=== PATIENT | male | born 1990 | race African-American/Black ===

== ENCOUNTER 2017-02-11 13:55 | Emergency (ER) | payer OTHER ==
[2017-02-11 14:00] VITALS: BP 111/68
[2017-02-11] MEDS ORDERED: Lidocaine 1% 50 ML MDV INJECT ONE (15:03)
--- NOTE | 2017-02-11 15:13 | EDM.PDOC ---
ED HPI GENERAL MEDICAL PROBLEM - General Chief Complaint: Laceration Stated Complaint: R HAND INJURY Time Seen by Provider: 02/11/17 14:53 Source of Information: Reports: Patient History Limitations: Reports: No Limitations - History of Present Illness INITIAL COMMENTS - FREE TEXT/NARRATIVE: 26-year-old male presents for evaluation treatment of a laceration to the right hand middle finger. Injury occurred prior to arrival in the ER. 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 He states that he placed the cut the distal portion of his right finger pad off. He reports significant bleeding. No numbness or tingling. Last tetanus was 7 years ago. Onset: Today Right Middle Hand Pain Score (Numeric/FACES): 1 - Related Data Allergies Allergy/AdvReac Type Severity Reaction Status Date / Time No Known Allergies Allergy Verified 02/11/17 14:00 Home Meds: Home Meds . [No Known Home Meds] 02/11/17 [History] Past Medical History Cardiovascular History: Reports: Heart Murmur Social & Family History - Family History Family Medical History: Noncontributory - Tobacco Use Smoking Status *Q: Current Some Day Smoker Years of Tobacco use: 5 Packs/Tins Daily: 0.1 - Recreational Drug Use Recreational Drug Use: No ED ROS GENERAL - Review of Systems Review Of Systems: See Below Skin: Reports: Wound (right middle finger ventral distal tip avulsion injury) Neurological: Reports: Numbness. Denies: Tingling ED EXAM, SKIN/RASH Exam: See Below Exam Limited By: No Limitations General Appearance: Alert, WD/WN, No Apparent Distress Cardiovascular: Normal Peripheral Pulses, Regular Rate, Rhythm Peripheral Pulses: 2+: Radial (L), Radial (R) Extremities: Normal Capillary Refill Neurological: Alert, Oriented Psychiatric: Normal Affect, Normal Mood Skin: Warm, Dry, Wound/Incision (2cm x 1 cm skin avulsion to the right hand 3rd distal vental finger ) Location, Skin: Upper Extremity, Right Course - Vital Signs Last Recorded V/S: Last Vital Signs Temp 36.7 C 02/11/17 13:58 Pulse 63 02/11/17 13:58 Resp 16 02/11/17 13:58 BP 111/68 02/11/17 13:58 Pulse Ox 98 02/11/17 13:58 - Orders/Labs/Meds Meds: Medications Discontinued Medications Generic Name Dose Route Start Last Admin Trade Name Shahid PRN Reason Stop Dose Admin Lidocaine HCl 50 ml 02/11/17 15:03 02/11/17 16:30 Xylocaine 1% INJECT 02/11/17 15:04 50 ml ONETIME ONE Administration - Re-Assessments/Exams Free Text/Narrative Re-Assessment/Exam: 02/11/17 16:48 Finger was soaked with kerraclens and saline. I then anesthetized the area with 1cc of 1% lidocaine without epi. Area was cauterized with 6 silver nitrate sticks. Small areas continued to ooze after cautry but resolved with pressure. Dressing including bacitracin and a tube gauze applied by nursing staff. Patient tolerated well. No complications. Tetanus is up to date. Discharge instructions as documented. Departure - Departure Time of Disposition: 16:41 Disposition: Home, Self-Care 01 Condition: Good Clinical Impression: Avulsion of skin of finger - Discharge Information Instructions: Avulsion Fracture of the Hand Referrals: PCP,None [Primary Care Provider] - Forms: ED Department Discharge Additional Instructions: Monitor the wound for signs of infection such as increased swelling, pus or erythema. Present to the clinic or the ER should these develop. Expect it take 2 weeks for the wound to heel. OTC antibacterial ointment to the wound twice a day x 3 days. Keep wound clean, dry and covered. Please return to ER if your symptoms change or worsen.
== END 2017-02-11 16:50 | disposition home or self-care (01) ==
LOC: JD.ED 13:55
DX: S61.302A Unspecified open wound of right middle finger with damage to nail, initial encounter (principal); F17.210 Nicotine dependence, cigarettes, uncomplicated; W26.9XXA Contact with unspecified sharp object(s), initial encounter
CPT/HCPCS: 11740; 12001; 12002; 99282-25; 99283-25

== ENCOUNTER 2017-02-12 12:00 | Emergency (ER) | payer OTHER ==
[2017-02-12 12:10] VITALS: BP 117/77
--- NOTE | 2017-02-12 12:51 | EDM.PDOC ---
ED HPI GENERAL MEDICAL PROBLEM - General Chief Complaint: Wound Recheck Stated Complaint: FINGER LAC STILL BLEEDING Time Seen by Provider: 02/12/17 12:36 Source of Information: Reports: Patient History Limitations: Reports: No Limitations - History of Present Illness INITIAL COMMENTS - FREE TEXT/NARRATIVE: Patient is a 26-year-old male returns back to the ED with concerns of bleeding persisting from his right middle finger. Patient cut his finger in a meat stringer yesterday and was seen at the ED. Site was cauterized with silver nitrate with dressing placed. Patient states since placement of the dressing is soaked through 2. 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 Patient has no additional complaints at this time. Right Middle Hand Pain Score (Numeric/FACES): 4 - Related Data Allergies Allergy/AdvReac Type Severity Reaction Status Date / Time No Known Allergies Allergy Verified 02/11/17 14:00 Home Meds: Home Meds . [No Known Home Meds] 02/11/17 [History] Past Medical History Cardiovascular History: Reports: Heart Murmur Social & Family History - Family History Family Medical History: Noncontributory - Tobacco Use Smoking Status *Q: Current Every Day Smoker Years of Tobacco use: 5 Packs/Tins Daily: 0.2 - Caffeine Use Caffeine Use: Reports: Energy Drinks, Soda - Recreational Drug Use Recreational Drug Use: No ED ROS GENERAL - Review of Systems Review Of Systems: See Below Skin: Reports: Wound (Distal tip of right middle finger) ED EXAM, SKIN/RASH Exam: See Below Exam Limited By: No Limitations General Appearance: Alert, WD/WN, No Apparent Distress Ears: Hearing Grossly Normal Nose: Normal Inspection Throat/Mouth: Normal Voice, No Airway Compromise Neck: Normal Inspection, Supple Respiratory/Chest: No Respiratory Distress, No Accessory Muscle Use Cardiovascular: Normal Peripheral Pulses, Regular Rate, Rhythm Peripheral Pulses: 2+: Radial (R) Extremities: Other (2cm x 1 cm skin avulsion to the right hand 3rd distal palmar aspect of finger) Neurological: Alert, Oriented, CN II-XII Intact, Normal Cognition, No Motor/ Sensory Deficits Psychiatric: Normal Affect, Normal Mood Skin: Warm, Dry, Other Course - Vital Signs Last Recorded V/S: Last Vital Signs Temp 98.1 F 02/12/17 12:05 Pulse 84 02/12/17 12:05 Resp 12 02/12/17 12:05 BP 117/77 02/12/17 12:05 Pulse Ox 100 02/12/17 12:05 - Re-Assessments/Exams Free Text/Narrative Re-Assessment/Exam: Ordered Surgicel to be placed on the wound site. No signs of infection present. Minimal bleeding present. Dressing was saturated with blood. No purulent drainage present. No concerns for infection. 02/12/17 13:20 bleeding subsided with surgicell placement. Dressing placed per nursing staff. Will discharge patient home with instructions as document. Departure - Departure Time of Disposition: 13:21 Disposition: Home, Self-Care 01 Condition: Good Clinical Impression: Laceration of finger Qualifiers: Encounter type: subsequent encounter Finger: middle finger Damage to nail status: without damage Foreign body presence: without foreign body Laterality: right Qualified Code(s): S61.212D - Laceration without foreign body of right middle finger without damage to nail, subsequent encounter - Discharge Information Instructions: Wound Infection, [id number], How to Change Your Dressing, Easy- to-Read, Wound Check Referrals: PCP,None [Primary Care Provider] - Forms: ED Department Discharge Additional Instructions: Monitor the wound for signs of infection such as increased swelling, pus or erythema. Present to the clinic or the ER should these develop. Expect if it take 2 weeks for the wound to heel. Cleanse site twice daily with soap and water, pat dry, reapply OTC antibacterial ointment, and dressing to the wound twice a day x 5 days. Keep wound clean, dry and covered. Please return to ER if your symptoms change or worsen.
== END 2017-02-12 13:35 | disposition home or self-care (01) ==
LOC: JD.ED 12:00
DX: S61.212D Laceration without foreign body of right middle finger without damage to nail, subsequent encounter (principal); F17.210 Nicotine dependence, cigarettes, uncomplicated; W26.8XXD Contact with other sharp object(s), not elsewhere classified, subsequent encounter
CPT/HCPCS: 99282; 99283